=== PATIENT | male | born 1990 | race Caucasian/White ===

== ENCOUNTER 2020-07-28 17:25 | Outpatient (CLI) | payer SELFPAY | END 2020-07-28 17:26 | disposition critical access hospital (66) | LOC: EMS 17:25 | PROVIDERS: ATTEND Registered Nurse | DX: S06.9X9A Unspecified intracranial injury with loss of consciousness of unspecified duration, initial encounter (principal); R41.0 Disorientation, unspecified; V18.4XXA Pedal cycle driver injured in noncollision transport accident in traffic accident, initial encounter; Y93.55 Activity, bike riding; Y92.413 State road as the place of occurrence of the external cause | CPT/HCPCS: A0425; A0427 ==

== ENCOUNTER 2020-07-28 17:41 | Day surgery (SDC) | payer BC ==
[2020-07-28] MEDS ORDERED: TETANUS/DIPHTHERIA/PERTUSSIS 0.5 ML SYRINGE IM ONE (18:16)
--- NOTE | 2020-07-28 18:20 | CT Report ---
PROCEDURE: HEAD WO INDICATIONS: fall TECHNIQUE: Noncontrast 4.5 mm thick angled axial sections acquired from the foramen magnum to the vertex. For r adiation dose reduction, the following was used: automated exposure control, adjustment of mA and/or kV according to patient size. COMPARISON: Correlation is made with accompany maxillofacial CT and cervical spine CT 07/28/2020. FINDINGS: Image quality: Motion artifact is noted. Images were repeated, with some improvement. CSF spaces: Basal cisterns are patent. No extra-axial fluid collections. Ventricles are normal in size and shape. Brain: No midline shift. No intracranial masses or hemorrhage. Hernandez-white matter interface is norm al. Skull and face: Focal soft tissue swelling can be seen involving the left forehead. There is a small amount of soft tissue gas seen involving the left cheek. No underlying fracture can be seen. Calvari um and visualized facial bones are intact, without suspicious lesions. Sinuses: Visualized sinuses and mastoids are clear. IMPRESSION: Limited study demonstrating no acute intracranial hemorrhage. There is left forehead swelling with soft tissue gas involving the left cheek. No associated fracture is detected. Reviewed by: Clemente Kim MD on 07/28/2020 5:18 PM [place] Approved by: Clemente Kim MD on 07/28/2020 5:18 PM [facility] Station ID: [id number]
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
--- NOTE | 2020-07-28 18:21 | CT Report ---
PROCEDURE: CERVICAL SPINE WO INDICATIONS: over trauma TECHNIQUE: Noncontrast 3 mm thick sections acquired from the skull base to the T4 level. Sagittal and coronal r eformats were then constructed. For radiation dose reduction, the following was used: automated exp osure control, adjustment of mA and/or kV according to patient size. COMPARISON: Correlation is made with the accompanying head CT and maxillofacial CT examinations, 07/17 FINDINGS: Image quality: Excellent. Bones: No fractures or dislocations. Visualized superior ribs are intact. Soft tissues: Prevertebral soft tissues are normal in thickness. No paravertebral hematomas. No ap ical pneumothoraces. IMPRESSION: Negative for cervical spine fracture. Reviewed by: Clemente Kim MD on 07/28/2020 5:20 PM [facility] Approved by: Clemente Kim MD on 07/28/2020 5:20 PM [facility] Station ID: [id number]
--- NOTE | 2020-07-28 18:27 | CT Report ---
PROCEDURE: MAXILLOFACIAL WO INDICATIONS: facial trauma TECHNIQUE: Noncontrast 1.5 mm thick axial images acquired from the mandible through the frontal sinuses, with co melody and sagittal reformatting. For radiation dose reduction, the following was used: automated ex posure control, adjustment of mA and/or kV according to patient size. COMPARISON: Correlation is made with the accompanying head CT and cervical spine CT examinations, 05/2021. FINDINGS: Image quality: Excellent. Bones and teeth: Orbital de luna are intact. Sinus de luna show no fracture or deformity. On series 2 i mage 164, there is a potential hairline fracture seen involving the superficial aspect of the left fr ontal sinus. However, this is believed to have sclerotic margins and is more likely related to a nutr ient channel. Nasal bones and septum are intact. Visualized portions of the mandible demonstrate no fractures or subluxation. Zygomatic arches are intact. Pterygoid plates are intact. Visualized por tions of the skull base and auditory canals are intact. There is a fracture seen of a left maxillary tooth, second from the midline. Sinuses: Mild mucosal thickening is seen within the left frontal sinus and the anterior left ethmoid air cells. Mild mucosal thickening is seen within the left sphenoid sinuses. The paranasal sinuses ot herwise appear clear. Mastoid air cells are aerated. Soft tissues: Soft tissue swelling can be seen involving the left forehead and the left left-sided pa ranasal sinus disease can be seen. There are small bubbles of gas seen within the soft tissues of the left cheek, which is consistent with a soft tissue laceration. Superficial radiopaque bodies are see n. There is a dense foreign body seen involving the region of the left upper lip, as on series 2 imag e 74, measuring 4 mm. Vascular: Visualized vascular structures appear normal in the absence of contrast. Bony vascular fo ramina and canals are intact. IMPRESSION: Left forehead and left cheek soft tissue swelling with laceration. No definite displaced fractures can be seen. Within the region of the swelling, there is a potential nondisplaced fracture of the superficial wall of the left frontal sinus. However, this is felt more l ikely to be related to a benign nutrient channel. Superficial foreign bodies are seen. There is also a 4 mm dense foreign body seen involving the left upper lip, which may be related to a tooth fragment. There is a fracture left maxillary tooth seen, second from the midline, tooth #10. Reviewed by: Clemente Kim MD on 07/28/2020 5:26 PM [place] Approved by: Clemente Kim MD on 07/28/2020 5:26 PM [facility] Station ID: [id number]
[2020-07-28 18:41] LABS: BASOPHILS # (AUTO) 0.1 10^3/uL (0.0-0.1); BASOPHILS % (AUTO) 0.4 %; EOSINOPHILS # (AUTO) 0.1 10^3/uL (0.0-0.7); EOSINOPHILS % (AUTO) 0.6 %; HCT - HEMATOCRIT 42.1 % (42.0-52.0); HGB - HEMOGLOBIN 14.4 g/dL (14.0-18.0); LYMPHOCYTES # (AUTO) 1.7 10^3/uL (1.5-3.5); LYMPHOCYTES % (AUTO) 10.7 %; MEAN CORPUSCULAR HEMOGLOBIN 32.4 pg (27.0-31.0); MEAN CORPUSCULAR HGB CONC 34.2 g/dL (32.0-36.0); MEAN CORPUSCULAR VOLUME 94.8 fL (80.0-94.0); MEAN PLATELET VOLUME 9.7 fL (7.4-11.4); MONOCYTES # (AUTO) 0.8 10^3/uL (0.0-1.0); MONOCYTES % (AUTO) 4.8 %; NEUTROPHILS # (AUTO) 13.2 10^3/uL (1.5-6.6); NEUTROPHILS % (AUTO) 83.1 %; PLT - PLATELET COUNT 213 10^3/uL (130-450); RED BLOOD COUNT 4.44 10^6/uL (4.70-6.10); WHITE BLOOD COUNT 15.9 x10^3/uL (4.8-10.8)
--- NOTE | 2020-07-28 18:44 | XRAY Report ---
PROCEDURE: Chest 1 View X-Ray INDICATIONS: chest pain TECHNIQUE: One view of the chest was acquired. COMPARISON: None. FINDINGS: Surgical changes and devices: None. Lungs and pleura: No pleural effusions or pneumothorax. Lungs are clear. Mediastinum: Mediastinal contours appear normal. Heart size is normal. Bones and chest wall: No suspicious bony lesions. Overlying soft tissues appear unremarkable. IMPRESSION: Chest without acute cardiopulmonary abnormalities. No acute osseous abnormality seen. Reviewed by: Geoff Patton MD on 07/28/2020 6:43 PM [facility] Approved by: Geoff Patton MD on 07/28/2020 6:43 PM [facility] Station ID: [id number]
--- NOTE | 2020-07-28 18:45 | XRAY Report ---
PROCEDURE: Pelvis 1 View INDICATIONS: TRAUMA TECHNIQUE: Single AP view(s) of the pelvis acquired. COMPARISON: None. FINDINGS: Bones: No fractures or dislocations. No suspicious bony lesions. Soft tissues: Visualized bowel gas pattern is normal. No suspicious soft tissue calcifications. IMPRESSION: Pelvis without acute fracture or dislocation. Reviewed by: Geoff Patton MD on 07/28/2020 6:43 PM PST Approved by: Geoff Patton MD on 07/28/2020 6:43 PM PST Station ID: [id number]
[2020-07-28 18:46] LABS: INR 1.3 (0.8-1.2); PT - PROTHROMBIN TIME 14.2 secs (9.9-12.6)
[2020-07-28 18:54] LABS: ALBUMIN 4.8 g/dL (3.2-5.5); ALBUMIN/GLOBULIN RATIO 1.7 (1.0-2.2); BILIRUBIN,TOTAL 0.9 mg/dL (0.2-1.0); CALCIUM 9.6 mg/dL (8.5-10.3); POTASSIUM 3.1 mmol/L (3.5-5.0); TOTAL PROTEIN 7.7 g/dL (6.7-8.2)
[2020-07-28] MEDS ORDERED: ceFAZolin 1 GM VIAL IVP STA (19:23)
[2020-07-28] MEDS ORDERED: MORPHINE 10 MG/ML VIAL IVP STA (19:23)
[2020-07-28 19:26] LABS: B. PARAPERTUSSIS- RESP PCR PAN NOT DETECTED; B. PERTUSSIS- RESP PCR PANEL NOT DETECTED; C. PNEUMONIAE- RESP PCR PANEL NOT DETECTED; CORONAVIRUS 229E-RESP PCR NOT DETECTED; CORONAVIRUS HKU1-RESP PCR NOT DETECTED; CORONAVIRUS NL63-RESP PCR NOT DETECTED; CORONAVIRUS OC43-RESP PCR NOT DETECTED; HUMAN METAPNEUMOVIRUS NOT DETECTED; INFLUENZA A- RESP PCR PANEL NOT DETECTED; INFLUENZA B - RESP PCR PANEL NOT DETECTED; M. PNEUMONIAE- RESP PCR PANEL NOT DETECTED; PARAINFLUENZA VIRUS 1 NOT DETECTED; PARAINFLUENZA VIRUS 2 NOT DETECTED; PARAINFLUENZA VIRUS 3 NOT DETECTED; PARAINFLUENZA VIRUS 4 NOT DETECTED; RHINOVIRUS/ENTEROVIRUS NOT DETECTED; RSV- RESP PCR PANEL NOT DETECTED; SARS-CoV-2 -RESP PCR PANEL NOT DETECTED
[2020-07-28] MEDS ORDERED: MORPHINE 2 MG/ML CARPUJECT IVP STA (20:21)
[2020-07-28] MEDS ORDERED: ONDANSETRON 4 MG/2 ML VIAL IVP PRN (20:33)
[2020-07-28] MEDS ORDERED: D5.45NS W/20 MEQ KCL 1,000 ML IV STA (20:37)
[2020-07-28] MEDS ORDERED: LORazepam 2 MG/ML VIAL IVP STA (20:40)
[2020-07-28] MEDS ORDERED: LIDOCAINE 2%-EPI 1:100000 20 ML MDV SUBQ STA (20:41)
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
[2020-07-29] MEDS: HYDROcod/ACETAM 5/325 MG TABLET PO PRN ×2 (02:19→09:01)
[2020-07-29] MEDS: AMOX/CLAV 875 MG/125 MG TABLET PO SCH ×2 (02:20→08:56)
[2020-07-29] MEDS ORDERED: BACITRACIN ZINC OINT 1 PACKET TOP PRN (03:33)
[2020-07-29] MEDS ORDERED: PETROLATUM WHITE 5 GM PACKET TOP PRN (03:33)
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
[2020-07-29 12:07] VITALS: BP 113/57
--- NOTE | 2020-07-29 12:49 | PROVIDER PROGRESS NOTE ---
Subjective - Review of Systems HEENT: positive: Headaches, Eye pain Gastrointestinal: negative: Nausea, Vomiting, Abdominal pain - Other Other Information/Narrative: Patient reports pain is improved from admission. Happy with plans for discharge and feels he can manage at home. Objective - Patient Data Vital Signs: Vital Signs x48h Temp Pulse Resp BP Pulse Ox 07/29/20 12:00 36.8 C 61 16 113/57 L 100 07/29/20 07:29 37.3 C 72 16 104/59 L 98 Weight: Weight 07/27/20 07/28/20 07/29/20 23:59 23:59 23:59 Weight (kg) 64.3 kg Intake & Output: Intake and Output Totals x24h 07/27/20 07/28/20 07/29/20 23:59 23:59 23:59 Intake Total 1520 Output Total 300 Balance 1220 - Lab Results Lab Results: 07/28/20 18:36 07/28/20 18:36 Other Lab Results: Lab Results x24hrs 07/28/20 07/28/20 07/28/20 Range/Units 18:36 18:36 18:36 WBC 15.9 H (4.8-10.8) x10^3/uL RBC 4.44 L (4.70-6.10) 10^6/uL Hgb 14.4 (14.0-18.0) g/dL Hct 42.1 (42.0-52.0) % MCV 94.8 H (80.0-94.0) fL MCH 32.4 H (27.0-31.0) pg MCHC 34.2 (32.0-36.0) g/dL RDW 12.0 (12.0-15.0) % Plt Count 213 (130-450) 10^3/uL MPV 9.7 (7.4-11.4) fL Neut # (Auto) 13.2 H (1.5-6.6) 10^3/uL Lymph # (Auto) 1.7 (1.5-3.5) 10^3/uL Doddridge # (Auto) 0.8 (0.0-1.0) 10^3/uL Eos # (Auto) 0.1 (0.0-0.7) 10^3/uL Baso # (Auto) 0.1 (0.0-0.1) 10^3/uL Absolute Nucleated RBC 0.00 x10^3/uL Nucleated RBC % 0.0 /100WBC PT 14.2 H (9.9-12.6) secs INR 1.3 H (0.8-1.2) Sodium 141 (135-145) mmol/L Potassium 3.1 L (3.5-5.0) mmol/L Chloride 103 (101-111) mmol/L Carbon Dioxide 23 (21-32) mmol/L Anion Gap 15.0 H (6-13) BUN 13 (6-20) mg/dL Creatinine 1.0 (0.6-1.2) mg/dL Estimated GFR (MDRD) 88 L (>89) Glucose 94 (70-100) mg/dL Calcium 9.6 (8.5-10.3) mg/dL Total Bilirubin 0.9 (0.2-1.0) mg/dL AST 20 (10-42) IU/L ALT 11 (10-60) IU/L Alkaline Phosphatase 54 (42-121) IU/L Total Protein 7.7 (6.7-8.2) g/dL Albumin 4.8 (3.2-5.5) g/dL Globulin 2.9 (2.1-4.2) g/dL Albumin/Globulin Ratio 1.7 (1.0-2.2) Lipase 28 (22-51) U/L Nasal Adenovirus (PCR) Nasal B. parapertussis DNA (PCR) Nasal Coronavir 229E PCR Nasal Coronavir HKU1 PCR Nasal Coronavir NL63 PCR Nasal Coronavir OC43 PCR Nasal Enterovir/Rhinovir PCR Nasal Influenza B PCR Nasal Influenza A PCR Nasal Parainfluen 1 PCR Nasal Parainfluen 2 PCR Nasal Parainfluen 3 PCR Nasal Parainfluen 4 PCR Nasal RSV (PCR) Nasal B.pertussis DNA PCR Nasal C.pneumoniae (PCR) Johnathon Human Metapneumo PCR Nasal M.pneumoniae (PCR) Nasal SARS-CoV-2 (PCR) 07/28/20 Range/Units 18:25 WBC (4.8-10.8) x10^3/uL RBC (4.70-6.10) 10^6/uL Hgb (14.0-18.0) g/dL Hct (42.0-52.0) % MCV (80.0-94.0) fL MCH (27.0-31.0) pg MCHC (32.0-36.0) g/dL RDW (12.0-15.0) % Plt Count (130-450) 10^3/uL MPV (7.4-11.4) fL Neut # (Auto) (1.5-6.6) 10^3/uL Lymph # (Auto) (1.5-3.5) 10^3/uL Dod[place]idge # (Auto) (0.0-1.0) 10^3/uL Eos # (Auto) (0.0-0.7) 10^3/uL Baso # (Auto) (0.0-0.1) 10^3/uL Absolute Nucleated RBC x10^3/uL Nucleated RBC % /100WBC PT (9.9-12.6) secs INR (0.8-1.2) Sodium (135-145) mmol/L Potassium (3.5-5.0) mmol/L Chloride (101-111) mmol/L Carbon Dioxide (21-32) mmol/L Anion Gap (6-13) BUN (6-20) mg/dL Creatinine (0.6-1.2) mg/dL Estimated GFR (MDRD) (>89) Glucose (70-100) mg/dL Calcium (8.5-10.3) mg/dL Total Bilirubin (0.2-1.0) mg/dL AST (10-42) IU/L ALT (10-60) IU/L Alkaline Phosphatase (42-121) IU/L Total Protein (6.7-8.2) g/dL Albumin (3.2-5.5) g/dL Globulin (2.1-4.2) g/dL Albumin/Globulin Ratio (1.0-2.2) Lipase (22-51) U/L Nasal Adenovirus (PCR) NOT DETECTED Nasal B. parapertussis DNA (PCR) NOT DETECTED Nasal Coronavir 229E PCR NOT DETECTED Nasal Coronavir HKU1 PCR NOT DETECTED Nasal Coronavir NL63 PCR NOT DETECTED Nasal Coronavir OC43 PCR NOT DETECTED Nasal Enterovir/Rhinovir PCR NOT DETECTED Nasal Influenza B PCR NOT DETECTED Nasal Influenza A PCR NOT DETECTED Nasal Parainfluen 1 PCR NOT DETECTED Nasal Parainfluen 2 PCR NOT DETECTED Nasal Parainfluen 3 PCR NOT DETECTED Nasal Parainfluen 4 PCR NOT DETECTED Nasal RSV (PCR) NOT DETECTED Nasal B.pertussis DNA PCR NOT DETECTED Nasal C.pneumoniae (PCR) NOT DETECTED Johnathon Human Metapneumo PCR NOT DETECTED Nasal M.pneumoniae (PCR) NOT DETECTED Nasal SARS-CoV-2 (PCR) NOT DETECTED - Current Medications Current Medications: Current Medications Generic Name Dose Route Start Last Admin Trade Name Freq PRN Reason Stop Dose Admin Hydrocodone Bitart/Acetaminophen 1 tab 07/28/20 20:33 07/29/20 09:01 Hydrocod/Acetam 5/325 Mg Tablet PO 1 tab Q4HR PRN Administration PAIN Amoxicillin/Clavulanate Potassium 1 tab 07/28/20 23:45 07/29/20 08:56 Amox/Clav 875 Mg/125 Mg Tablet PO 1 tab BID WILBUR Administration - Physical Exam Eyes Bilateral: positive: Other (Swelling and edema of the left face and orbit is noted. Ecchymosis) Impression/Plan - Problem List Problem List: Wounds are stable and managed per Dr. Brice. No gross evidence of infections. Alert and oriented. Agree with plans for discharge this morning. Follow up is scheduled with Dr. Brice.
== END 2020-07-29 12:30 | disposition home or self-care (01) ==
LOC: ED 17:41 → MS2 23:59 → ED 07-29 00:20 → MS2 07-29 00:20 → ED 07-29 01:56 → MS2 07-29 01:56 → SDS 07-29 01:56
PROVIDERS: ATTEND Family Medicine
DX: S01.122A Laceration with foreign body of left eyelid and periocular area, initial encounter (principal); S01.521A Laceration with foreign body of lip, initial encounter; S01.82XA Laceration with foreign body of other part of head, initial encounter; S02.5XXA Fracture of tooth (traumatic), initial encounter for closed fracture; S03.2XXA Dislocation of tooth, initial encounter; S01.21XA Laceration without foreign body of nose, initial encounter; S06.0X9A Concussion with loss of consciousness of unspecified duration, initial encounter; S02.2XXA Fracture of nasal bones, initial encounter for closed fracture; V19.9XXA Pedal cyclist (driver) (passenger) injured in unspecified traffic accident, initial encounter; Z20.822 Contact with and (suspected) exposure to COVID-19; M25.512 Pain in left shoulder; F17.210 Nicotine dependence, cigarettes, uncomplicated; H11.32 Conjunctival hemorrhage, left eye; R04.0 Epistaxis
CPT/HCPCS: 0202U; 11042; 13152; 13153; 36415; 70450; 70486; 71045; 72125; 72170; 80053; 83690; 85025; 85610; 90471; 90715; 96365; 96366; 96375; 96376; 99281; 99284; A9270; J2060